=== PATIENT | male | born 1990 | race African-American/Black ===

== ENCOUNTER 2017-09-25 06:13 | Emergency (ER) | payer SELFPAY ==
[2017-09-25] MEDS: ACETAMINOPHEN 500 MG TABLET PO (06:51)
[2017-09-25 07:08] LABS: INFLUENZA A PATIENT NEGATIVE (NEGATIVE); INFLUENZA B PATIENT NEGATIVE (NEGATIVE); OBC FLU VALID
[2017-09-25 07:10] LABS: ADD MAN DIFF? NO
[2017-09-25] MEDS: IV NORMAL SALINE 1000ML BAG 1,000 ML IV (07:13)
[2017-09-25 07:15] LABS: BASO % 0 % (0-3); EOS % 0 % (0-3); HEMATOCRIT 36.7 % (39.0-53.0); HEMOGLOBIN 12.4 g/dL (13.0-17.5); LYMPH # 0.9 x10^3/uL (1.0-4.8); LYMPH % 9 % (24-48); MEAN CORPUSCULAR HEMOGLOBIN 29 pg (25-35); MEAN CORPUSCULAR HGB CONC 34 g/dL (31-37); MEAN CORPUSCULAR VOLUME 85 fL (79-100); MONO # 1.4 x10^3/uL (0.0-1.1); MONO % 13 % (0-9); NEUT # 8.3 x10^3uL (1.8-7.7); NEUT % 78 % (31-73); PLATELET COUNT 244 x10^3/uL (140-400); RED BLOOD COUNT 4.31 x10^6/uL (4.30-5.70); RED CELL DISTRIBUTION WIDTH 12.8 % (11.5-14.5); WHITE BLOOD COUNT 10.7 x10^3/uL (4.0-11.0)
[2017-09-25] MEDS: KETOROLAC 30 MG/ML INJ. IV (07:15)
[2017-09-25] MEDS: ONDANSETRON PF 4 MG/2 ML VIAL. IV (07:16)
[2017-09-25 07:19] LABS: ANION GAP 13 (6-14); BLOOD UREA NITROGEN 14 mg/dL (8-26); BUN/CREATININE RATIO 11 (6-20); CALCIUM 8.8 mg/dL (8.5-10.1); CARBON DIOXIDE 26 mmol/L (21-32); CHLORIDE 99 mmol/L (98-107); CREATININE 1.3 mg/dL (0.7-1.3); GFR 80.1; GLUCOSE 113 mg/dL (70-99); POTASSIUM 3.7 mmol/L (3.5-5.1); SODIUM 138 mmol/L (136-145)
[2017-09-25 07:26] LABS: ALBUMIN 3.8 g/dL (3.4-5.0); ALBUMIN/GLOBULIN RATIO 0.8 (1.0-1.7); ALK PHOS 135 U/L (46-116); ALT (SGPT) 87 U/L (16-63); AST (SGOT) 52 U/L (15-37); TOTAL BILIRUBIN 1.1 mg/dL (0.2-1.0); TOTAL PROTEIN 8.4 g/dL (6.4-8.2)
[2017-09-25 07:28] LABS: LACTIC ACID 1.3 mmol/L (0.4-2.0)
== END 2017-09-25 08:26 | disposition home or self-care (01) ==
LOC: ER 06:13
DX: B34.9 Viral infection, unspecified (principal); Z88.8 Allergy status to other drugs, medicaments and biological substances
CPT/HCPCS: 36415; 71046; 80053; 83605; 85025; 87040; 87804; 87804-59; 96361; 96374; 96375; 99285-25; J1885; J2405; J7030